=== PATIENT | female | born 2000 | race Caucasian/White ===

== ENCOUNTER 2023-07-19 05:34 | Inpatient (IN) | payer BC, OTHER ==
[2023-07-19] VITALS (17 sets, daily range): BP systolic 90–123; BP diastolic 52–91; PULSE 49–73; TEMP 97.7–98.5
[~2023-07-19] VITALS: Ht 160 cm; Wt 85.5 kg
[~2023-07-19 05:34] MED LIST: LR 1,000 ML IV SCH; Ondansetron 4 MG/2 ML VIAL IV SCH
--- NOTE | 2023-07-19 05:45 | NUR ---
0545 ADM TO 213 FOR PRIMARY C/SECT. IV STARTED AND LAB DRAWN. PERMITS SIGNED.
[2023-07-19] MEDS ORDERED: LR 1,000 ML IV SCH (06:00)
[2023-07-19 06:15] LABS: BASO % 0.5 % (0.0-2.0); EOS # 0.1 K/mm3 (0.0-0.7); EOS % 1.7 % (0.0-4.0); GRAN # 5.5 K/mm3 (1.4-6.5); GRAN % 65.8 % (42.2-75.2); HEMOGLOBIN 12.3 g/dl (12.5-16.0); LYMPH # 1.8 K/mm3 (1.2-3.4); LYMPH % 21.8 % (20.0-51.0); MEAN CELL VOLUME 90 fl (80.0-100.0); MEAN CORPUSCULAR HEMOGLOBIN 30 pg (27-31); MEAN CORPUSCULAR HGB CONC 33 g/dl (33.0-37.0); MEAN PLATELET VOLUME 9.9 fl (7.4-10.4); MONO # 0.8 K/mm3 (0.1-0.6); MONO % 9.5 % (1.7-9.3); PLATELET COUNT 258 K/mm3 (130-400); RED BLOOD COUNT 4.08 M/mm3 (4.10-5.30); REDCELL DISTRIBUTION WIDTH-CV 13.3 % (11.5-14.5)
--- NOTE | 2023-07-19 06:15 | NUR ---
THIS RN RECEIVES PT FROM [facility]. PT REPORTS FEELING BABY MOVE LOTS. PT REPORTS NOT FEELING ANY CTX. PT DENIES LOF AND DENIES VAGINAL BLEEDING. THIS RN TAKES OVER PREOP.
[2023-07-19 06:16] LABS: HEMATOCRIT 36.8 % (37.0-47.0)
[2023-07-19] MEDS ORDERED: PRENATAL TABLET PO (06:46)
[2023-07-19] MEDS ORDERED: Ondansetron 4 MG/2 ML VIAL ONE (06:48)
[2023-07-19] MEDS ORDERED: dexAMETHasone 10 MG/ML VIAL ONE (06:48)
[2023-07-19] MEDS ORDERED: Oxytocin 10 UNITS/ML VIAL ONE (06:48)
[2023-07-19] MEDS ORDERED: Ketorolac 30 MG/ML VIAL ONE (06:48)
[2023-07-19] MEDS ORDERED: NS 10 ML IV ONE ×2 (06:48→07:02)
[2023-07-19] MEDS ORDERED: Phenylephrine 10 MG/ML VIAL ONE (07:59)
[2023-07-19] MEDS ORDERED: Acetaminophen 500 MG TAB PO SCH (08:30)
[2023-07-19] MEDS ORDERED: Ondansetron 4 MG/2 ML VIAL IV PRN (08:30)
[2023-07-19] MEDS ORDERED: Measles/Mumps/Rubella Virus Vaccine Live w Diluent 0.5 ML VIAL SQ SCH (08:30)
[2023-07-19] MEDS ORDERED: oxyCODONE 5 MG TAB PO PRN (08:30)
[2023-07-19] MEDS ORDERED: Naloxone 0.4 MG/ML VIAL IV PRN (08:30)
[2023-07-19] MEDS ORDERED: Morphine 4 MG/ML VIAL IV PRN (08:30)
[2023-07-19] MEDS ORDERED: Magnes Hydrox (MOM) 80 MG/ML 30 ML CUP PO PRN (08:30)
[2023-07-19] MEDS ORDERED: Loratadine 10 MG TAB PO PRN (08:30)
[2023-07-19] MEDS ORDERED: LR 1,000 ML IV PRN (08:30)
[2023-07-19] MEDS ORDERED: Ibuprofen 600 MG TAB PO SCH (14:24)
[2023-07-19] MEDS ORDERED: Sennosides/Docusate 8.6-50 MG TAB PO SCH (17:00)
[2023-07-19] MEDS ORDERED: traZODone 50 MG TAB PO PRN (21:00)
[2023-07-20 02:00] VITALS: BP 118/64; PULSE 56; TEMP 98.8
[2023-07-20 08:46] VITALS: BP 109/75; PULSE 58; TEMP 98.1
[2023-07-20] MEDS ORDERED: IBU600 MG PO (09:14)
[2023-07-20] MEDS ORDERED: ROXICODONE 55 MG/TAB PO (09:15)
[2023-07-20 17:08] VITALS: BP 118/75; PULSE 73; TEMP 97.7
[2023-07-20 21:25] VITALS: BP 116/81; PULSE 78; TEMP 97.4
[2023-07-21 08:15] VITALS: BP 119/81; PULSE 79; TEMP 97.9
--- NOTE | 2023-07-21 16:55 | NUR ---
DISCHARGE INSTRUCTIONS REVIEWED WITH PT REGARDING PAIN MANAGEMENT, MEDICATIONS (WHICH ARE RECOMMENDED FOR AVOIDING CONSTIPATION), ACTIVITY GUIDELINES/RESTRICTIONS, INCISION CARE, AND REASONS TO CALL/SEE PHYSICIAN. QUESTIONS INVITED AND ANSWERED. PT VERBALIZES UNDERSTANDING.
--- NOTE | 2023-07-21 17:20 | NUR ---
PT DISCHARGED HOME, AMBULATES OUT OF FACILITY ACCOMPANIED BY SPOUSE AND LST.
== END 2023-07-21 18:20 | disposition home or self-care (01) | DRG 788 ==
LOC: OB 05:34
PROVIDERS: ADMIT Obstetrics & Gynecology
PROC: 10D00Z1 Extraction of Products of Conception, Low, Open Approach (ICD-10-PCS; principal; 2023-07-19)
DX: O32.1XX0 Maternal care for breech presentation, not applicable or unspecified (principal); Z37.0 Single live birth; O99.891 Other specified diseases and conditions complicating pregnancy; M41.9 Scoliosis, unspecified; Z3A.39 39 weeks gestation of pregnancy
CPT/HCPCS: J0665; J0690; J1100; J1885; J2371; J2405; J2590; J2765; J7120